=== PATIENT | female | born 1990 | race Caucasian/White ===

== ENCOUNTER 2016-09-03 15:22 | Emergency (ER) | payer BC, OTHER ==
[~2016-09-03] VITALS: Wt 99.8 kg
[~2016-09-03 15:22] MED LIST: ANAPROX DS550 MG PO; CLARITIN10 MG PO; CLEOCIN150 MG PO; Motrin,Rufen800 MG PO; ROBAXIN750 MG PO; SEPTRA DS 800 M1 TAB PO; TOBREX OPHTH S2.5 ML OPH; TRIMOX500 MG PO
[2016-09-03] MEDS ORDERED: NAPROSYN500 MG PO (15:38)
== END 2016-09-03 16:27 | disposition home or self-care (01) ==
LOC: ED 15:22
DX: S93.601A Unspecified sprain of right foot, initial encounter (principal); R03.0 Elevated blood-pressure reading, without diagnosis of hypertension; F17.200 Nicotine dependence, unspecified, uncomplicated; W10.9XXA Fall (on) (from) unspecified stairs and steps, initial encounter; Y93.89 Activity, other specified; Y92.89 Other specified places as the place of occurrence of the external cause; Y99.8 Other external cause status

== ENCOUNTER 2016-11-09 14:10 | Emergency (ER) | payer BC, OTHER ==
[~2016-11-09] VITALS: Ht 182.8 cm; Wt 104.3 kg
[~2016-11-09 14:10] MED LIST changes: +NAPROSYN500 MG PO
== END 2016-11-09 15:54 | disposition home or self-care (01) ==
LOC: ED 14:10
DX: S80.01XA Contusion of right knee, initial encounter (principal); X58.XXXA Exposure to other specified factors, initial encounter; Y93.89 Activity, other specified; Y92.9 Unspecified place or not applicable; Y99.9 Unspecified external cause status

== ENCOUNTER 2018-12-09 00:31 | Emergency (ER) | payer OTHER ==
[~2018-12-09] VITALS: Ht 180.3 cm; Wt 122.5 kg
[2018-12-09] MEDS ORDERED: Motrin,Rufen800 MG PO (00:48)
== END 2018-12-09 01:20 | disposition home or self-care (01) ==
LOC: ED 00:31
DX: M25.561 Pain in right knee (principal); G89.29 Other chronic pain; R22.41 Localized swelling, mass and lump, right lower limb; Z79.899 Other long term (current) drug therapy

== ENCOUNTER 2021-01-20 08:00 | Emergency (ER) | payer OTHER ==
[~2021-01-20] VITALS: Wt 117.9 kg
[2021-01-20 08:00] VITALS: BP 97/71
[2021-01-20 09:06] LABS: HEMATOCRIT 37.3 % (37.0-47.0); MEAN CELL VOLUME 86.1 fl (81.0-99.0); MEAN CORPUSCULAR HGB 28.6 pg (27.0-31.0); MEAN CORPUSCULAR HGB CONC 33.2 g/dl (33.0-37.0); MEAN PLATELET VOLUME 10.5 fl (9.6-12.3); PLATELET COUNT AUTOMATED 112 10*3/uL (130-400); RED BLOOD COUNT 4.33 10*6/uL (4.10-5.10); RED CELL DISTRI WIDTH 13.5 % (0-14.5); WHITE BLOOD COUNT 3.5 10*3/uL (4.8-10.8)
[2021-01-20 09:18] LABS: ALBUMIN 3.1 gm/dl (3.1-4.5); ALKALINE PHOSPHATASE 59 U/L (45-117); BUN 13 mg/dl (7-24); CHLORIDE 106 mmol/L (98-107); CREATININE 0.94 mg/dL (0.55-1.02); POTASSIUM 3.2 mmol/L (3.5-5.1); SGOT/AST 73 IU/L (3-35); SGPT/ALT 40 U/L (12-78); SODIUM 140 mmol/L (136-145); TOTAL PROTEIN 7.9 gm/dL (6.4-8.2)
[2021-01-20 09:22] LABS: TROPONIN I < 0.015 ng/ml (<0.045)
[2021-01-20 09:26] LABS: ATYPICAL LYMPHS 3 % (0-0); PLATELET SUFFICIENCY LOW (NORMAL); TOTAL CELLS COUNTED 100 #CELLS
[2021-01-20 12:10] VITALS: BP 102/72
== END 2021-01-20 12:16 | disposition left against medical advice (07) ==
LOC: ED 08:00 → EDHOLD 11:35 → ED 12:16
PROVIDERS: Emergency Medicine
DX: U07.1 COVID-19 (principal); J12.82 Pneumonia due to coronavirus disease 2019

== ENCOUNTER 2021-07-14 11:58 | Emergency (ER) | payer OTHER ==
[~2021-07-14] VITALS: Wt 117.9 kg
[2021-07-14] MEDS ORDERED: CLEOCIN HCL150 MG PO (14:16)
== END 2021-07-14 14:17 | disposition home or self-care (01) ==
LOC: ED 11:58
DX: S91.331A Puncture wound without foreign body, right foot, initial encounter (principal); W22.8XXA Striking against or struck by other objects, initial encounter; Y93.89 Activity, other specified; Y92.89 Other specified places as the place of occurrence of the external cause; Y99.9 Unspecified external cause status

== ENCOUNTER → 2022-08-21 | Outpatient (CLI) | payer OTHER ==
[~2022-08-21] MED LIST changes: +CLEOCIN HCL150 MG PO
[2022-08-21 16:42] LABS: BASO % 0.4 % (0.0-1.0); EOS # 0.4 10*3/uL (0.0-0.4); EOS % 5.5 % (1.0-4.0); HEMATOCRIT 37.4 % (37.0-47.0); LYMPH # 2.3 10*3/uL (1.3-4.4); LYMPH % 34.3 % (27.0-41.0); MEAN CORPUSCULAR HGB 28.1 pg (27.0-31.0); MEAN CORPUSCULAR HGB CONC 32.4 g/dl (33.0-37.0); MEAN PLATELET VOLUME 9.4 fl (9.6-12.3); MONO # 0.6 10*3/uL (0.1-1.0); MONO % 8.9 % (3.0-9.0); NEUT # 3.4 10*3/uL (2.3-7.9); NEUT % 50.8 % (47.0-73.0); PLATELET COUNT AUTOMATED 237 10*3/uL (130-400); RED CELL DISTRI WIDTH 13.5 % (0-14.5); WHITE BLOOD COUNT 6.7 10*3/uL (4.8-10.8)
[2022-08-21 17:05] LABS: ALKALINE PHOSPHATASE 76 U/L (46-116); BUN 11 mg/dl (9-23); CHLORIDE 107 mmol/L (98-107); POTASSIUM 4.5 mmol/L (3.4-5.1); SGPT/ALT 27 U/L (10-49); TOTAL PROTEIN 7.8 gm/dL (6.0-8.0)
== END | disposition home or self-care (01) ==
LOC: LAB 16:27
PROVIDERS: ATTEND Nurse Practitioner Family
DX: R05.1 Acute cough (principal)

== ENCOUNTER 2025-02-25 21:20 | Emergency (ER) | payer OTHER ==
[2025-02-25] MEDS ORDERED: NAPROSYN500 MG PO (22:04)
== END 2025-02-25 22:16 | disposition home or self-care (01) ==
LOC: ED 21:20
DX: S63.501A Unspecified sprain of right wrist, initial encounter (principal); W19.XXXA Unspecified fall, initial encounter; Y93.89 Activity, other specified; Y92.89 Other specified places as the place of occurrence of the external cause; Y99.8 Other external cause status